=== PATIENT | male | born 1960 | race Caucasian/White ===

== ENCOUNTER 2016-08-16 15:03 | Emergency (ER) | payer OTHER ==
[2016-08-16 15:25] VITALS: BP 141/81
[2016-08-16] MEDS ORDERED: HYDROmorphone 1 MG/ML Syringe IM ONE (15:55)
[2016-08-16] MEDS ORDERED: Bacitracin Oint 1 GM U/D Packet TOP ONE (15:55)
[2016-08-16] MEDS ORDERED: Bupivacaine 0.25%/EPINEPHrine 1:200,000 10 ML SDV INJECT ONE (15:57)
--- NOTE | 2016-08-16 15:59 | EDM.PDOC ---
ED HPI GENERAL MEDICAL PROBLEM - General Chief Complaint: Lower Extremity Injury/Pain Stated Complaint: RIGHT FOOT/SOLE LACERATION Time Seen by Provider: 08/16/16 15:48 Source of Information: Reports: Patient, Family, RN Notes Reviewed History Limitations: Reports: No Limitations - History of Present Illness INITIAL COMMENTS - FREE TEXT/NARRATIVE: 56-year-old gentleman presents emergency department today with laceration to the plantar surface of his right foot, this occurred when [place] jumped [place] the dock and up catching a sharp stick on the bottom of the [place] bleeding is controlled at the time of arrival. 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: Dressing(s) - Related Data Allergies Allergy/AdvReac Type Severity Reaction Status Date / Time No Known Allergies Allergy Verified 08/16/16 15:25 Home Meds: Home Meds NK [No Known Home Meds] 08/16/16 [History] Past Medical History - Past Health History Medical/Surgical History: Denies Medical/Surgical History Social & Family History - Tobacco Use Smoking Status *Q: Never Smoker Review of Systems - Review of Systems Review Of Systems: See Below Musculoskeletal: Reports: No Symptoms Skin: Reports: Wound Neurological: Reports: No Symptoms ED EXAM, GENERAL - Physical Exam Exam: See Below Free Text/Narrative:: Examination of the foot he does have approximately 3 cm laceration the arch mid aspect right foot on plantar surface, pedal pulse is 2+ full range of motion of all digits ED TRAUMA EXTREMITY PROCEDURES - Laceration/Wound Repair Right Foot Lac/Wound Length In cm: 3.5 Appearance: Subcutaneous, Linear, Moderately Contaminated Distal NVT: Neuro & Vascular Intact, No Tendon Injury Anesthetic Type: Local Local Anesthesia - Lidocaine (Xylocaine): 1% With EPI Local Anesthetic Volume: Other (7cc) Skin Prep: Chlorhexidine (Hibiciens), Saline Saline Irrigation (cc's): 500 Exploration/Debridement/Repair: Wound Explored, in a Bloodless Field, Explored to Base, Minimal Debridement, Foreign Material Removed Closed With: Sutures Suture Size: 3-0 # of Sutures: 7 Suture Type: Prolene Suture Size: 4-0 Repaired With: Vicryl Sterile Dressing Applied: Nurse Tetanus Status Addressed: Yes Complications: No Course - Vital Signs Last Recorded V/S: Last Vital Signs Temp 97.3 F 08/16/16 15:30 Pulse 84 08/16/16 15:30 Resp 14 08/16/16 15:30 BP 141/81 H 08/16/16 15:30 Pulse Ox 99 08/16/16 15:30 - Orders/Labs/Meds Orders: Active Orders 24 hr Category Date Time Status Foot 2V Rt [CR] Stat Exams 08/16/16 16:45 Taken Meds: Medications Discontinued Medications Generic Name Dose Route Start Last Admin Trade Name Devan PRN Reason Stop Dose Admin Bacitracin 1 dose 08/16/16 15:55 08/16/16 16:27 Bacitracin Oint 1 Gm TOP 08/16/16 15:56 1 dose ONETIME ONE Administration Bupivacaine HCl/Epinephrine Bitart 10 ml 08/16/16 15:57 08/16/16 16:34 Marcaine 0.25%/Epinephrine 1:200,000 INJECT 08/16/16 15:58 Not Given ONETIME ONE Hydromorphone HCl 1 mg 08/16/16 15:55 08/16/16 16:28 Dilaudid IM 08/16/16 15:56 1 mg ONETIME ONE Administration Lidocaine/Epinephrine Confirm 08/16/16 16:17 08/16/16 16:28 Xylocaine 1% With Epinephrine 1:100,000 Administered 08/16/16 16:18 50 ml Dose Administration 50 ml .ROUTE .STK-MED ONE Departure - Departure Time of Disposition: 17:30 Disposition: Home, Self-Care 01 Condition: Good Clinical Impression: Laceration of right foot Qualifiers: Encounter type: initial encounter Qualified Code(s): S91.311A - Laceration without foreign body, right foot, initial encounter - Discharge Information Forms: ED Department Discharge Additional Instructions: Suture removal in 10 days, follow wound care instruction sheet, call or return to the emergency department worsening of symptoms - My Orders Last 24 Hours: My Active Orders 08/16/16 16:45 Foot 2V Rt [CR] Stat - Assessment/Plan Last 24 Hours: My Active Orders 08/16/16 16:45 Foot 2V Rt [CR] Stat Plan: Assessment Acuity = acute Site and laterality = 3.5 cm laceration plantar surface right foot Etiology = secondary to trauma in the [place] with a tree limb Manifestations = pain Location of injury = home Lab values = x-ray I did not appreciate any foreign body other than superficial material, radiology read is pending Plan Follow wound care instruction sheet, suture removal in 10 days because of foreign material the wound was in a anderson elected to place him on Keflex 500 mg 3 times a day 10 days Patient was in agreement with the plan all questions were answered, they were instructed to return to the emergency department or call for worsening symptoms. This note was dictated using igobubble voice recognition software please call with any questions.
[2016-08-16] MEDS ORDERED: Lidocaine 1% with EPINEPHrine 1:100,000 50 ML MDV ONE (16:17)
--- NOTE | 2016-08-18 08:32 | CR ---
Foot 2V Rt HISTORY: fb FINDINGS: No acute fracture or dislocation is identified. Bony architecture and joint spaces are preserved. T here is a small amount of air in the soft tissues seen only in the PA view between the second and th ird metatarsals. IMPRESSION: No acute fracture or dislocation right foot is identified. No definite radiopaque foreign body can b e seen. There is air in the soft tissues between the second and third metatarsals, seen only on the PA view.
== END 2016-08-16 17:55 | disposition home or self-care (01) ==
LOC: JP.ED 15:03
DX: S91.311A Laceration without foreign body, right foot, initial encounter (principal); W26.8XXA Contact with other sharp object(s), not elsewhere classified, initial encounter; Y93.39 Activity, other involving climbing, rappelling and jumping off
CPT/HCPCS: 12002; 73620; 96372; 99284; J1170